=== PATIENT | male | born 1980 | race Caucasian/White ===

== ENCOUNTER 2016-12-10 10:00 | Emergency (ER) | payer SELFPAY ==
[~2016-12-10] VITALS: Ht 170.2 cm; Wt 97.0 kg
[~2016-12-10 10:00] MED LIST: BACT800T5 PO
[2016-12-10 10:04] VITALS: BP 121/83; PULSE 79; RESP 16; TEMP 98.6; O2SAT 96
--- NOTE | 2016-12-10 11:09 | PD ---
HPI Chief Complaint: Musculoskeletal Complaint Time Seen by Provider: 11:08 Travel History International Travel<30 days: No Contact w/Intl Traveler<30days: No Traveled to known affect area: No History of Present Illness HPI 36-year-old male with PMH of gout presents to the ED for evaluation of right great toe pain. Onset overnight. Patient denies fever or chills, acute injury to the area, alcohol consumption. He states symptoms are exactly the same as previous episodes of gout. He did not take any medication to treat the condition. He states he does not have a primary care provider. NKDA. PFSH Past Medical History Diminished Hearing: No Gout: Yes Immunizations Current: Yes Tetanus Vaccination: < 5 Years Influenza Vaccination: No Past Surgical History Surgical History: No Previous Surgery Social History Alcohol Use: No (occas. beer) Tobacco Use: Yes (3/4 ppd cigs) Substance Use: No Allergies-Medications (Allergen,Severity, Reaction): Coded Allergies: *MDRO Multi-Drug Resistant Organism (Verified Adverse Reaction, Unknown, ) MRSA (abdomen-06/09/16) Reported Meds & Prescriptions Reported Meds & Active Scripts Active No Active Prescriptions or Reported Medications Review of Systems Except as stated in HPI: all other systems reviewed are Neg Physical Exam Narrative GENERAL: Well-nourished, well-developed white male, sleeping on the stretcher on my arrival, in no acute distress. SKIN: Focused skin assessment warm/dry. HEAD: Normocephalic. EYES: No scleral icterus. No injection or drainage. NECK: Supple, trachea midline. No JVD or lymphadenopathy. CARDIOVASCULAR: Regular rate and rhythm without murmurs, gallops, or rubs. RESPIRATORY: Breath sounds equal bilaterally. No accessory muscle use. GASTROINTESTINAL: Abdomen soft, non-tender, nondistended. MUSCULOSKELETAL: No cyanosis, or edema. FOCUSED RIGHT LOWER EXTREMITY EXAM: 2+ radial pulse. The MP joint of great toe is erythematous, warm, exquisitely tender to palpation. Patient retains flexion , extension of the ankle and digits. Neurovascularly intact. BACK: Nontender without obvious deformity. No CVA tenderness. Data Data Last Documented VS Vital Signs Date Time Temp Pulse Resp B/P Pulse Ox O2 Delivery O2 Flow Rate FiO2 12/10/16 10:08 16 12/10/16 10:04 98.6 79 121/83 96 Orders Colchicine (Colchicine) (4/5/17 11:30) Ibuprofen (Motrin) (12/10/16 11:30) Acetamin-Hydrocod 325-5 Mg ([place] 5-325 (12/10/16 11:30) [facility] Medical Decision Making Medical Screen Exam Complete: Yes Emergency Medical Condition: Yes Differential Diagnosis Gout flare versus fracture versus septic joint versus other Narrative Course 36-year-old male with PMH of gout presents to the ED for evaluation of right great toe pain. Onset overnight. Patient denies fever or chills, acute injury to the area, alcohol consumption. He states symptoms are exactly the same as previous episodes of gout. He did not take any medication to treat the condition. He states he does not have a primary care provider. Vitals reviewed. Physical exam reveals a nontoxic-appearing white male, sleeping on the stretcher on my arrival, in no acute distress. Focused right lower extremity exam reveals a 2+ radial pulse. The MP joint of great toe is erythematous, warm, exquisitely tender to palpation. Patient retains flexion, extension of the ankle and digits. Neurovascularly intact. Patient was administered 1.2 mg colchicine, 800 mg ibuprofen and a 5 mg Lortab by mouth. He is prescribed colchicine 0.6 mg twice a day 30 days. He is instructed to take a second dose of colchicine in one hour, then begin normal dosing schedule. He was also prescribed 800 mg ibuprofen 3 times a day. He is instructed to rest, ice, elevate the extremity, return to normal, gentle activities as tolerated, follow up with the primary care provider. He was provided a note an excuse for work. He indicated understanding of the instructions, is agreeable to the care plan. He is stable and discharged home. Diagnosis Primary Impression: Gout flare Qualified Code: M10.9 - Acute gout involving toe of right foot, unspecified cause Referrals: Primary Care Physician Patient Instructions: General Instructions, Gout (ED) Departure Forms: Tests/Procedures, Work Release Enter return to work date: Dec 15, 2016 Additional Instructions: Rest, ice, elevate the extremity. Apply ice no longer than 10-15 minutes per hour a few times a day. Take 0.6 mg colchicine in one hour, then begin normal dosing schedule of 0.6 mg 2 times a day. 800 mg ibuprofen re-times a day as prescribed. Return to normal, gentle activity as tolerated. No running, jumping activities for the next few weeks. Follow up with primary care provider. Return to the ED for any urgent or emergent medical condition. Med/Other Pt SpecificInfo: Prescription(s) given Scripts Ibuprofen 800 Mg [id number] Mg PO Q8H #15 TAB Ref 0 Prov:Beatriz Galvin MD 12/10/16 Colchicine 0.6 Mg Cap0.6 Mg PO BID 30 Days Ref 0 Prov:Beatriz Galvin MD 12/10/16 Carol Proctor Dec 10, 2016 11:08
[2016-12-10] MEDS ORDERED: IBUP800T23 PO (11:19)
[2016-12-10] MEDS ORDERED: COLC1CAP3 PO (11:19)
[2016-12-10] MEDS ORDERED: IBUPROFEN 800 MG TAB PO ONE (11:30)
[2016-12-10] MEDS ORDERED: ACETAMINOPHEN/HYDROcodone 325 MG/5 MG TAB PO ONE (11:30)
[2016-12-10] MEDS ORDERED: COLCHICINE 0.6 MG TAB PO ONE (11:30)
== END 2016-12-10 11:59 | disposition home or self-care (01) ==
LOC: PHEFT 10:00
DX: M10.9 Gout, unspecified (principal); F17.210 Nicotine dependence, cigarettes, uncomplicated
CPT/HCPCS: 99283

== ENCOUNTER 2017-04-01 23:09 | Emergency (ER) | payer SELFPAY ==
[~2017-04-01] VITALS: Ht 170.2 cm; Wt 93.5 kg
[~2017-04-01 23:09] MED LIST changes: -BACT800T5 PO; +COLC1CAP3 PO; +IBUP800T23 PO
[2017-04-01 23:18] VITALS: BP 137/93; PULSE 95; RESP 14; TEMP 98.4; O2SAT 98
[2017-04-02] MEDS ORDERED: BACTROBAN OINTMENT TOPICAL (00:27)
[2017-04-02] MEDS ORDERED: CLIN1CAP5 PO (00:27)
[2017-04-02] MEDS ORDERED: BACT800T5 PO (00:27)
[2017-04-02] MEDS ORDERED: IBUP-232 PO (00:27)
--- NOTE | 2017-04-02 00:28 | PD ---
HPI Chief Complaint: infected lesions Time Seen by Provider: 00:13 Travel History International Travel<30 days: No Contact w/Intl Traveler<30days: No Traveled to known affect area: No History of Present Illness HPI 36-year-old male complains of painful lesions all over the extremity. Patient states the symptoms started 5-6 days ago and spreading since then. Patient denies any fever chills. 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 Patient states that he is up-to-date with TD booster. PFSH Past Medical History Diminished Hearing: No Gout: Yes Immunizations Current: Yes Social History Alcohol Use: No (occas. beer) Tobacco Use: Yes (3/4 ppd cigs) Substance Use: No Allergies-Medications (Allergen,Severity, Reaction): Coded Allergies: *MDRO Multi-Drug Resistant Organism (Verified Adverse Reaction, Unknown, ) MRSA (abdomen-06/09/16) Reported Meds & Prescriptions Reported Meds & Active Scripts Active No Active Prescriptions or Reported Medications Review of Systems General / Constitutional: No: Fever Eyes: No: Visual changes HENT: No: Headaches Cardiovascular: No: Chest Pain or Discomfort Respiratory: No: Shortness of Breath Gastrointestinal: No: Abdominal Pain Genitourinary: No: Dysuria Musculoskeletal: No: Pain Skin: No Rash Neurologic: No: Weakness Psychiatric: No: Depression Endocrine: No: Polydipsia Hematologic/Lymphatic: No: Easy Bruising Physical Exam Narrative GENERAL: Well-nourished, well-developed patient. SKIN: Patient had crusted lesions all over upper and lower extremity. Mild skin redness associate with the rash. No discharge noted. HEAD: Normocephalic. EYES: No scleral icterus. No injection or drainage. NECK: Supple, trachea midline. No JVD or lymphadenopathy. CARDIOVASCULAR: Regular rate and rhythm without murmurs, gallops, or rubs. RESPIRATORY: Breath sounds equal bilaterally. No accessory muscle use. GASTROINTESTINAL: Abdomen soft, non-tender, nondistended. MUSCULOSKELETAL: No cyanosis, or edema. BACK: Nontender without obvious deformity. No CVA tenderness. Data Data Last Documented VS Vital Signs Date Time Temp Pulse Resp B/P Pulse Ox O2 Delivery O2 Flow Rate FiO2 04/01/17 23:18 98.4 95 14 137/93 98 MDM Medical Decision Making Medical Screen Exam Complete: Yes Emergency Medical Condition: Yes Differential Diagnosis Differential diagnosis including impetigo, folliculitis, cellulitis, abscess. Narrative Course 36-year-old male with crusted lesions and extremity. Motrin 600 mg by mouth given. Clindamycin 300 mg by mouth. Bactrim DS one tablet by mouth given. Diagnosis Primary Impression: Impetigo Additional Instructions: Take medications as directed. Soap water wash daily. Follow-up with personal physician. Return if worse. Med/Other Pt SpecificInfo: Prescription(s) given Scripts Clindamycin 150 Mg Cap2 Tab PO Q6H #80 CAP Prov:Viral West MD 04/02/17 Sulfamethoxazole-Trimethoprim (Bactrim DS)800-160 Mg Tab1 Tab PO BID #20 TAB Prov:Viral Wets MD 04/02/17 Ibuprofen 600 Mg Qru112 Mg PO TID #30 TAB Prov:Viral West MD 04/02/17 [Bactroban Ointment] No Conflict Check1 Applic TOPICAL BID #1 Prov:Viral West MD 04/02/17 Disposition: 01 DISCHARGE HOME Condition: Stable Viral West MD Apr 02, 2017 00:28
[2017-04-02] MEDS ORDERED: SULFAMETHOXAZOLE-TRIMETHOPRIM DS 800-160 MG TAB PO ONE (00:30)
[2017-04-02] MEDS ORDERED: CLINDAMYCIN 150 MG CAP PO ONE (00:30)
[2017-04-02] MEDS ORDERED: IBUPROFEN 600 MG TAB PO ONE (00:30)
[2017-04-02 00:40] VITALS: BP 117/70; PULSE 88; RESP 14; O2SAT 100
== END 2017-04-02 00:56 | disposition home or self-care (01) ==
LOC: PHED 23:09
DX: L01.00 Impetigo, unspecified (principal)
CPT/HCPCS: 99284

== ENCOUNTER 2017-09-19 07:45 | Emergency (ER) | payer SELFPAY ==
[~2017-09-19] VITALS: Ht 170.2 cm; Wt 97.3 kg
[~2017-09-19 07:45] MED LIST changes: +BACT800T5 PO; +BACTROBAN OINTMENT TOPICAL; +CLIN150C14 PO; -COLC1CAP3 PO; +IBUP-232 PO; -IBUP800T23 PO
[2017-09-19 07:46] VITALS: BP 155/91; PULSE 89; RESP 18; TEMP 98.2; O2SAT 99
[2017-09-19] MEDS ORDERED: COLC1TAB15 PO (07:55)
[2017-09-19] MEDS ORDERED: INDO50CA PO (07:55)
[2017-09-19] MEDS ORDERED: PRED20 PO (08:15)
[2017-09-19] MEDS ORDERED: NORC5TAB PO (08:15)
--- NOTE | 2017-09-19 08:16 | PD ---
HPI Chief Complaint: Musculoskeletal Complaint Time Seen by Provider: 07:52 Travel History International Travel<30 days: No Contact w/Intl Traveler<30days: No Traveled to known affect area: No History of Present Illness HPI Patient is a 37-year-old male presents to emergency Department with right great toe pain. He states started last night. Has a history of gout, does not take any medicines for this never seen a frame builder. States pain is rather severe, right toe no radiation, context as above, no fevers no nausea vomiting no leg pain or leg swelling. No history of trauma. PFSH Past Medical History Diminished Hearing: No Gout: Yes Integumentary: Yes (MRSA) Immunizations Current: Yes Tetanus Vaccination: < 5 Years Influenza Vaccination: No Social History Alcohol Use: No (occas. beer) Tobacco Use: Yes (1 1/2 ppd cigs) Substance Use: No Allergies-Medications (Allergen,Severity, Reaction): Coded Allergies: *MDRO Multi-Drug Resistant Organism (Verified Adverse Reaction, Unknown, ) MRSA (abdomen-06/09/16) Reported Meds & Prescriptions Reported Meds & Active Scripts Active [place] (Hydrocodone-Acetaminophen) 5 Mg-325 Mg Tab 1 Tab PO Q6H PRN Prednisone 20 Mg Tab 60 Mg PO DAILY 5 Days Review of Systems Except as stated in HPI: all other systems reviewed are Neg Physical Exam Narrative GENERAL: Well-nourished, well-developed patient. SKIN: Focused skin assessment warm/dry. There is some erythema and warmth over the MTP joint on the right first digit of the foot. There is minimal joint effusion. There is also some mild swelling. HEAD: Normocephalic. EYES: No scleral icterus. No injection or drainage. NECK: Supple, trachea midline. No JVD or lymphadenopathy. CARDIOVASCULAR: Regular rate and rhythm without murmurs, gallops, or rubs. RESPIRATORY: Breath sounds equal bilaterally. No accessory muscle use. GASTROINTESTINAL: Abdomen soft, non-tender, nondistended. MUSCULOSKELETAL: No cyanosis, or edema. Mild effusion and erythema over the right great toe as above, highly consistent with gout flare. No bony tenderness , no erythema or swelling of the mid foot. BACK: Nontender without obvious deformity. No CVA tenderness. Data Data Last Documented VS Vital Signs Date Time Temp Pulse Resp B/P (MAP) Pulse Ox O2 Delivery O2 Flow Rate FiO2 1/13/18 07:46 98.2 89 18 155/91 (112) 99 Orders Orders Ed Discharge Order (09/19/17 08:17) Acetamin-Hydrocod 325-5 Mg ([place] 5-325 (09/19/17 08:30) MDM Medical Decision Making Medical Screen Exam Complete: Yes Emergency Medical Condition: Yes Differential Diagnosis Gout flare, traumatic injury unlikely, infectious arthritis unlikely. Narrative Course Patient roomed in emergency department highly consistent with gout, discussed symptomatic management follow-up with a frame builder return to ED criteria. He is stable for discharge. Diagnosis Primary Impression: Gout flare Referrals: Jessie Faustin DPM Med/Other Pt SpecificInfo: Prescription(s) given Scripts Hydrocodone-Acetaminophen ([place]) 5 Mg-325 Mg Tab 1 TAB PO Q6H Y for PAIN, #15 TAB 0 Refills Prov: Chaz Landeros MD 09/19/17 Prednisone (Prednisone) 20 Mg Tab 60 MG PO DAILY for 5 Days, #15 TAB 0 Refills Prov: Chaz Landeros MD 09/19/17 Disposition: 01 DISCHARGE HOME Condition: Stable Chaz Landeros MD Sep 19, 2017 08:16
[2017-09-19] MEDS ORDERED: ACETAMINOPHEN/HYDROcodone 325 MG/5 MG TAB PO ONE (08:30)
== END 2017-09-19 08:30 | disposition home or self-care (01) ==
LOC: PHED 07:45
DX: M10.9 Gout, unspecified (principal); F17.200 Nicotine dependence, unspecified, uncomplicated
CPT/HCPCS: 99283

== ENCOUNTER 2018-01-25 18:48 | Emergency (ER) | payer SELFPAY ==
[~2018-01-25] VITALS: Ht 170.2 cm; Wt 99.6 kg
[~2018-01-25 18:48] MED LIST changes: -BACT800T5 PO; -BACTROBAN OINTMENT TOPICAL; -CLIN150C14 PO; -IBUP-232 PO; +NORC5TAB PO; +PRED20 PO
[2018-01-25 19:54] VITALS: BP 122/88; PULSE 78; RESP 18; TEMP 99.2; O2SAT 97
[2018-01-25] MEDS ORDERED: OSEL75 PO (20:08)
--- NOTE | 2018-01-25 20:12 | PD ---
HPI Chief Complaint: Cold / Flu Symptoms Time Seen by Provider: 20:01 Travel History International Travel<30 days: No Contact w/Intl Traveler<30days: No Traveled to known affect area: No History of Present Illness HPI 37-year-old male presents emergency department for evaluation of cough, body aches, fever, night sweats has been present since last night. Says that he began has not having the symptoms last night and has worsened throughout the day. Says that he vomited once after coughing. Denies diarrhea or nausea. 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 He did not actually check his fever but has felt feverish. Denies shortness of breath or chest pain. He has a history of gout but denies any other medical issues or concerns. Patient does use tobacco. PFSH Past Medical History Diminished Hearing: No Gout: Yes Integumentary: Yes (MRSA) Immunizations Current: Yes ?: Not Social History Alcohol Use: No (occas. beer) Tobacco Use: Yes (1PPD) Substance Use: No Allergies-Medications (Allergen,Severity, Reaction): Coded Allergies: *MDRO Multi-Drug Resistant Organism (Verified Adverse Reaction, Unknown, ) MRSA (abdomen-06/09/16) Reported Meds & Prescriptions Reported Meds & Active Scripts Active Tamiflu (Oseltamivir Phosphate) 75 Mg Cap 75 Mg PO BID 5 Days [place] (Hydrocodone-Acetaminophen) 5 Mg-325 Mg Tab 1 Tab PO Q6H PRN Prednisone 20 Mg Tab 60 Mg PO DAILY 5 Days Review of Systems Except as stated in HPI: all other systems reviewed are Neg Physical Exam Narrative GENERAL: Well-nourished, well-developed patient, in NAD SKIN: Focused skin assessment warm/dry. No rashes or lesions. HEAD: Normocephalic. Atraumatic. EYES: No scleral icterus. No injection or drainage. PERRLA, EOMI THROAT: No pharyngeal injection, exudates, or tonsillar hypertrophy. Airway is patent. NECK: Supple, trachea midline. No JVD or lymphadenopathy. No meningismus. CARDIOVASCULAR: Regular rate and rhythm without murmurs, gallops, or rubs. RESPIRATORY: Breath sounds equal bilaterally. No accessory muscle use. No wheezes, rales, or rhonchi MUSCULOSKELETAL: No cyanosis, or edema. BACK: Nontender without obvious deformity. No CVA tenderness. Data Data Last Documented VS Vital Signs Date Time Temp Pulse Resp B/P (MAP) Pulse Ox O2 Delivery O2 Flow Rate FiO2 01/25/18 19:54 99.2 78 18 122/88 (99) 97 Orders Orders Ed Discharge Order (01/25/18 20:13) MDM Medical Decision Making Medical Screen Exam Complete: Yes Emergency Medical Condition: Yes Differential Diagnosis Viral syndrome, influenza, upper respiratory infection, pneumonia Narrative Course 37-year-old male presents emergency department for viral/flulike symptoms since last night. Vital signs are stable. Temperature 99.2. Physical exam findings demonstrate a well-developed, well-nourished 37-year-old male. Occasional cough. Lungs without wheezes, rales or rhonchi. no other concerning exam findings today. I discussed the option treatment versus testing for the flu as patient does have symptoms. They state that they would like to be treated and opt out of testing for the flu. Tamiflu prescribed. Advised to follow-up with primary care physician within 2-3 days. Return for worsening or persistent symptoms. Diagnosis Primary Impression: Viral syndrome Referrals: [facility] Additional Instructions: You may alternate tylenol and motrin for fever, per package instructions. Use cooling techniques such as placing cool rags in the armpits or legs to reduce fever. Take all medications as prescribed. Follow up with your primary physician within 2-3 days. Return to the emergency department for worsening or uncontrolled fever. Scripts Oseltamivir (Tamiflu) 75 Mg Cap 75 MG PO BID for Mgmt Viral Infection for 5 Days, #10 CAP 0 Refills Prov: Son Mena MD 01/25/18 Disposition: 01 DISCHARGE HOME Condition: Stable Lina Maya January 25, 2018 20:12
== END 2018-01-25 20:25 | disposition home or self-care (01) ==
LOC: PHEFT 18:48
DX: B34.9 Viral infection, unspecified (principal); R05 Cough; M10.9 Gout, unspecified; F17.210 Nicotine dependence, cigarettes, uncomplicated
CPT/HCPCS: 99283